=== PATIENT | female | born 1970 | race Caucasian/White ===

== ENCOUNTER → 2017-08-07 09:30 | Outpatient (CLI) | payer BC, SELFPAY ==
--- NOTE | 2017-08-07 09:33 | MM_ITS ---
MM Dig screening mamm BI w/CAD CAD Screening ORDERING PHYSICIAN : Reinaldo Avelar MD PATIENT AGE: 46 years GENDER: Female COMPARISON: Previous mammograms: Bilateral digital mammogram & Ultrasound left breastMay 2016. INDICATION: Routine screening. No hormones no new complaints noncontributory family history. TECHNIQUE: Standard CC and MLO images were obtained. R2 CAD reviewed. FINDINGS: Low-density breast bilaterally. No dominant mass nor suspicious calcifications. Areas of faint minor nodularity the left breast similar to previous studies and can be followed... CAD computer review highlights no areas of concern. Right breast. Benign intramammary node at the far lateral right breast is stable Left breast. The minimal residual glandular elements upper-outer quadrant left breast appears stable. Subtle areas of asymmetric density appear adequately stable IMPRESSION No significant new findings. Bilateral follow-up one year recommended BI-RADS Category: 2 Benign Finding(s) RECOMMENDED FOLLOW-UP: 1YR - 1 YEAR FOLLOW-UP (A letter has been sent to the patient regarding results of the study.)
== END ==
PROVIDERS: PCP Family Medicine; Visit Provider Family Medicine
DX: Z12.31 Encounter for screening mammogram for malignant neoplasm of breast (principal)
CPT/HCPCS: 77067

== ENCOUNTER → 2018-09-27 09:39 | Outpatient (CLI) | payer BC, SELFPAY ==
--- NOTE | 2018-09-27 09:42 | MM_ITS ---
MM Dig screening mamm BI w/CAD CAD Screening COMPARISON: Digital mammograms with CAD 08/07/2017 and 07/17/2016 INDICATION: There is no personal or family history of breast cancer TECHNIQUE: Standard CC and MLO images were obtained. R2 CAD reviewed. FINDINGS: Scattered fibroglandular densities are seen throughout both breasts. There is a possible small asymmetric density upper outer quadrant left breast best seen on MLO projection with questionably spiculated borders. However it appears less worrisome on the CC projection and this could be simply a summation shadow or possibly a small posttraumatic scar. However suggest patient return for spot compression MLO view and exaggerated cc view. There are stable tiny benign-appearing nodular densities near the axillary tails of each breast. There are no suspicious microcalcifications. IMPRESSION: Fibrofatty parenchyma with possible slightly suspicious asymmetric density left breast BI-RADS Category: 0 Need Additional Imaging Evaluation RECOMMENDED FOLLOW-UP: IMM - IMMEDIATE FOLLOW-UP RECOMMENDED (A letter has been sent to the patient regarding results of the study.)
== END ==
PROVIDERS: PCP Family Medicine; Visit Provider Family Medicine
DX: Z12.31 Encounter for screening mammogram for malignant neoplasm of breast (principal)
CPT/HCPCS: 77067

== ENCOUNTER → 2018-10-06 14:01 | Outpatient (CLI) | payer BC, SELFPAY ==
--- NOTE | 2018-10-06 | US_ITS ---
MM Dig mamm DX unilat LT CAD, US breast LT complete INDICATION: Follow-up abnormal mammogram, follow-up asymmetric density ORDERING PHYSICIAN: Reinaldo Avelar MD PATIENT AGE: 47 years COMPARISON: 09/27/2018, 08/07/2017, 04/15/2008 TECHNIQUE: Problem-solving views of the left breast along with left breast ultrasound FINDINGS: There is average fibroglandular tissue. The area of asymmetric density appears to compress out as fibroglandular tissue. Not felt to be significantly changed. There is a 3 mm benign-appearing nodule in the outer aspect of the left breast. Left breast ultrasound: 4 mm cyst is present at 2:00 may correspond to the small nodular density seen on the mammogram IMPRESSION: No convincing evidence of malignancy. Area of asymmetric density appears to compress out. Probably benign-appearing nodule in the outer left breast which may correspond to a cyst on the ultrasound. Recommend 6 month mammographic and sonographic follow-up BI-RADS Category: 3 Probably Benign Finding Short Term Follow-up RECOMMENDED FOLLOW-UP: 6M - 6 MONTH FOLLOW-UP (A letter has been sent to the patient regarding results of the study.)
== END ==
PROVIDERS: PCP Family Medicine; Visit Provider Family Medicine
DX: R92.8 Other abnormal and inconclusive findings on diagnostic imaging of breast (principal)
CPT/HCPCS: 76641; 77065

== ENCOUNTER → 2020-01-02 09:06 | Outpatient (CLI) | payer BC, SELFPAY ==
--- NOTE | 2020-01-02 09:09 | MM_ITS ---
PROCEDURE: MM DIG SCREENING MAMM BI W/CAD Digital Breast Tomosynthesis Included CLINICAL INDICATION: SCREENING There is no personal or family history of breast cancer. COMPARISON: MG DMDBAV DIG MAMM-DX LYSSA W/AVWS W/CAD from 07/17/2016 MG SCBI MM Dig screening mamm BI w/CAD from 08/07/2017 MG DIG MAMM-DX UNI-LT from 10/06/2018 TECHNIQUE: Standard CC and MLO images and 3D Tomosynthesis was obtained. R2 CAD reviewed. FINDINGS: Scattered diffuse fibroglandular densities are seen throughout both breasts. There is a collection of small nodular densities upper outer quadrant right breast possibly small microcysts or possibly couple low-lying nodes. There is no suspicious lesion in either breast and no suspicious microcalcifications. IMPRESSION: Fibrofatty parenchyma with no suspicious lesions seen BI-RAD Category: 1 Negative FOLLOW-UP: 1YR 1 Year Follow-up (A letter has been sent to the patient regarding results of the study.) Dictated by: Dr. Tristian Sawant MD 01/08/2020 08:11 Dr. Tristian Sawant MD in [place] 01/08/2020 08:11
== END ==
PROVIDERS: PCP Family Medicine; Visit Provider Family Medicine
DX: Z12.31 Encounter for screening mammogram for malignant neoplasm of breast (principal)
CPT/HCPCS: 77063; 77067

== ENCOUNTER → 2020-10-27 09:05 | Outpatient (CLI) | payer BC, SELFPAY | PROVIDERS: Visit Provider Surgery | DX: Z20.822 Contact with and (suspected) exposure to COVID-19 (principal) | CPT/HCPCS: U0003 ==

== ENCOUNTER 2020-10-30 09:45 | Day surgery (SDC) | payer BC, SELFPAY ==
[2020-10-29 08:58] VITALS: BMI 27.9
[2020-10-30] VITALS (11 sets, daily range): BP systolic 117–132; BP diastolic 63–84; PULSE 77–108; RESP 16; TEMP 36.6–43; O2SAT 95–99
[2020-10-30 10:18] LABS: Urine Pregnancy, HCG Qual. Negative (Negative)
--- NOTE | 2020-10-30 10:29 | P.PN_ITS ---
[facility] Anesthesia Checklist - Patient Identification Patient Identification: Arm Band - Structural Data Admitted From: Home Planned Operative Procedure/s: Excision of Anal Lesion Consent for Planned Operative Procedure(s) Verified: Yes Verified Documents: Surgical Consent, History and Physical - NPO Status Verified Time NPO: 00:00 - Additional verifications Anesthesia Reactions: No Hx Blood Transfusions: No Blood Transfusion Reaction: No - Airway Assessment C-Spine Mobility Assessed: Yes (mp2) TMJ Mobility Assessed: Yes Dentition: Good Dentition - Neurological Assessment Level of Consciousness: Awake, Alert - Anesthesia Plan Anesthesia Risk discussed: Yes Anesthesia Plan: Verified ASA Class: I Anesthesia Type: General [facility] History I have reviewed the patient's past medical history: Yes Medical History: Denies:: Cancer, Diabetes Mellitus Type 1, Diabetes Mellitus Type 2, Internal Pacemaker, MRSA, Seizures *Have you ever received a pneumonia vaccine?: No *Have you received a flu vaccine this season?: Yes Other Medical History: Denies: Blood Transfusion Reaction Anesthesia experience/problems:: nac Laterality Cases: Bilateral: Tonsillectomy Other Surgeries: Yes: Dilation and Curettage, Other. No: Pacemaker Amputation: No Fractures: No - *Social History Last grade of school completed: High school graduate Smoking Status: Never smoker Alcohol Intake: never Substance Use Type: denies use *Occupational Status:: employed Housing: house Household Members: spouse *Travel in the last 8 weeks: None Family Hx:: No significant family history
--- NOTE | 2020-10-30 11:56 | HMH.OPNOTE ---
Date of procedure: 10/30/20 Pre-op Diagnosis:: Anal polyp Post-op Diagnosis:: Same Procedure performed:: Excision of anal polyp Surgeon:: Terry Jim MD CIRCUIT DESIGNER:: Chris Ibanez Anesthesia: LMA Estimated blood loss (mL): 5 Operative findings:: Consistent with pedunculated anal polyp versus anal papilla Operative note:: Patient was taken to the operating room. She was positioned supine position. General anesthesia was induced. She was positioned in modified lithotomy position. Perineum was prepped and draped in the standard surgical fashion. In the left posterior lateral location there was a pedunculated anal skin lesion. This may be previous inflamed hemorrhoid versus anal polyp. This was grasped and excised with Metzenbaum scissors. Was sent off as specimen. The anoderm was closed with combination of 5-0 plain gut and 4-0 chromic. Local anesthetic was infiltrated. Patient tolerated procedure well no immediate complications. Condition: stable Disposition: PACU Specimens:: Anal polyp Complications:: None immediately apparent
--- NOTE | 2020-10-30 12:11 | P.PN_ITS ---
[facility] Anesthesia Record Part I Intake, IV Amount: 900 Estimated blood loss (mL): 5 Urine output (mL): 0 Blood Pressure: 118/63 SaO2: 97 Pulse Rate: 105 Respiratory Rate: 16 Temperature: 98.5 F Patient is:: Drowsy, Stable Stable to PACU at:: 12:00
--- NOTE | 2020-10-30 13:38 | P.PN_ITS ---
[facility] Anesthesia Record Part II Discharge Time: 12:30 Destination: Surgical Day Care (OP Surgery) PACU nurse assessment reviewed?: Yes Patient Condition:: Good Anesthesia Complications:: None Swallowing reflex intact?: Yes Cyanosis?: No Blood Pressure: 127/83 Pulse Rate: 79 Temperature: 98.5 F Mental Status: Alert & Oriented Pain level:: 0 Nausea and/or vomitting:: None Intake, IV Amount: 0
== END 2020-10-30 13:00 | disposition home or self-care (01) ==
LOC: OR 09:47
PROVIDERS: PCP Family Medicine; Visit Provider Surgery
PROC: (CPT 46922; principal; 2020-10-30 11:30)
DX: K62.0 Anal polyp (principal); Z79.899 Other long term (current) drug therapy; F32.9 Major depressive disorder, single episode, unspecified
CPT/HCPCS: 46922; 81025; 96374; J2405

== ENCOUNTER → 2021-08-27 16:03 | Outpatient (CLI) | payer BC, SELFPAY ==
--- NOTE | 2021-08-27 16:07 | MM_ITS ---
PROCEDURE INFORMATION: Exam: MG Bilateral Screening 3D Mammography Exam date and time: 08/27/2021 3:59 PM Age: 50 years old Clinical indication: Screening examination TECHNIQUE: Imaging protocol: Bilateral Screening tomosynthesis and 2D mammography including computer-aided detection (CAD) when performed. COMPARISON: 1. MG MM DIG SCREENING MAMM BI W/CAD 01/02/2020 9:15 AM 2. MG MM DIG MAMM DX UNILAT LT CAD 10/06/2018 2:56 PM 3. MG SCBI MM Dig screening mamm BI w/CAD 08/07/2017 9:52 AM 4. MG DMDBAV DIG MAMM-DX LYSSA W/AVWS W/CAD 07/17/2016 9:53 AM FINDINGS: MAMMOGRAPHY: Breast composition: There are scattered areas of fibroglandular density. Mass: No suspicious mass. Architectural distortion: None. Calcifications: No suspicious calcifications. Asymmetric density: None. Skin thickening: None. Axillary adenopathy: None. IMPRESSION: No mammographic evidence of malignancy. Annual screening is recommended unless otherwise clinically indicated. ASSESSMENT: BI-RADS Category 1: Negative
== END ==
PROVIDERS: PCP Family Medicine; Visit Provider Family Medicine
DX: Z12.31 Encounter for screening mammogram for malignant neoplasm of breast (principal)
CPT/HCPCS: 77063; 77067

== ENCOUNTER 2022-02-14 08:22 | Day surgery (SDC) | payer BC, SELFPAY ==
[2022-02-11 16:57] VITALS: BMI 18.8
[2022-02-14] VITALS (7 sets, daily range): BP systolic 95–146; BP diastolic 59–87; PULSE 79–111; RESP 16–18; TEMP 36.3–36.7; O2SAT 96–100
--- NOTE | 2022-02-14 08:43 | P.PN_ITS ---
[facility] Disclaimer: The information contained in this section may have been updated after the patient was seen, as this information can be updated by other users. Medical History Depression Surgical History History of dilatation and curettage History of surgical removal of skin lesion History of tonsillectomy Family History Other Family history of cancer Social History Smoking Status: Never smoker alcohol intake: never substance use type: denies use current occupational status: employed Travel in the last 8 weeks: None household members: spouse housing: house current occupation: [employer] current occupational exposures/hazards: No caffeine: Yes [facility] Anesthesia Checklist Patient Identification Patient Identification: Arm Band and Verbal (Name & ) Structural Data Admitted From: Home Planned Operative Procedure/s: Colonoscopy Consent for Planned Operative Procedure(s) Verified: Yes NPO Status Verified Time NPO: 00:00 Additional verifications Anesthesia Reactions: No Hx Blood Transfusions: No Blood Transfusion Reaction: No Airway Assessment C-Spine Mobility Assessed: Yes TMJ Mobility Assessed: Yes Dentition: Good Dentition Neurological Assessment Level of Consciousness: Awake Hx Seizures: No Numbness or tingling in extremities: No Anesthesia Plan Anesthesia Risk discussed: Yes Anesthesia Plan: Verified ASA Class: I Anesthesia Type: MAC
[2022-02-14 08:48] LABS: Urine Pregnancy, HCG Qual. Negative (Negative)
--- NOTE | 2022-02-14 10:02 | HMH.SCOPE ---
Procedure: Date: 02/14/22 Patient Date of :: 1970 Procedure Performed:: Total colonoscopy to terminal ileum with biopsy Indications:: Patient is a 51-year-old female referred by Dr. Avelar for initial screening colonoscopy. 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 She does state that her uncle had colon cancer. Performing Provider:: Terry Jim MD Referring Provider:: Reinaldo Avelar Sedation:: MAC sedation Procedure:: Patient history was obtained and appropriate physical examination was performed. Patient's medications and allergies were reviewed. Informed consent was obtained after explaining the benefits, alternatives, and risks of the procedure including, but not limited to, bleeding, perforation, missed lesions, and adverse reaction to anesthesia medications. Patient was transported to endoscopy procedure room. Patient was connected to monitoring devices. Throughout the procedure the patient's blood pressure, pulse, and oxygen saturations were monitored continuously. Patient identification and planned procedure were verified by the staff. Patient was positioned in lateral decubitus position. Digital anorectal exam was performed. Variable stiffness Olympus colonoscope was inserted and advanced under direct visualization to the cecum. Adequacy of the colonic preparation was noted. The colonoscope was advanced a short distance into the terminal ileum. The colonoscope was then slowly withdrawn while carefully examining the color, texture, anatomy, and integrity of the mucosoa circumferentially. Within the rectum retroflexion was performed. Colonoscope was then withdrawn. Findings:: Variable stiffness Olympus colonoscope was inserted via the anus. It was advanced to the cecum with some difficulty due to redundancy and atony of the colon. Ultimately ileocecal valve and appendiceal orifice were identified. In the terminal ileum there was some denuded mucosa, likely inconsequential. Biopsy was performed. There were no other noted masses, polyps, or mucosal lesions. There were possibly some beginnings of diverticuli in the sigmoid colon but this was subtle. Retroflexion revealed no pathologic internal hemorrhoids. Findings: Relatively unremarkable colonoscopy, some denuded mucosa in the terminal ileum biopsied, likely normal Recommendations:: Repeat colonoscopy 5 to 10 years. Favor 5 years given that initial screening colonoscopy as well as vague family history. Complications:: None immediate Estimated blood obtained (mL): 1
== END 2022-02-14 10:45 | disposition home or self-care (01) ==
PROVIDERS: PCP Family Medicine; Visit Provider Surgery
PROC: 0DJD8ZZ Inspection of Lower Intestinal Tract, Via Natural or Artificial Opening Endoscopic (ICD-10-PCS; CPT 45380; principal; 2022-02-14 09:30)
DX: Z12.11 Encounter for screening for malignant neoplasm of colon (principal); Z80.0 Family history of malignant neoplasm of digestive organs; Z79.899 Other long term (current) drug therapy
CPT/HCPCS: 45380; 81025; 88305; J2704

== ENCOUNTER 2023-08-12 08:04 | Outpatient (CLI) | payer BC, SELFPAY ==
--- NOTE | 2023-08-12 08:11 | MM_ITS ---
PROCEDURE INFORMATION: Exam: MG Bilateral Screening 3D Mammography Exam date and time: 08/12/2023 7:59 AM Age: 52 years old Clinical indication: Screening mammogram TECHNIQUE: Imaging protocol: Bilateral Screening tomosynthesis and 2D mammography including computer-aided detection (CAD) when performed. COMPARISON: 1. MG MM DIG SCREENING MAMM BI W/CAD 08/27/2021 3:59 PM 2. MG MM DIG SCREENING MAMM BI W/CAD 01/02/2020 9:15 AM 3. MG MM DIG MAMM DX UNILAT LT CAD 10/06/2018 2:56 PM 4. MG SCBI MM Dig screening mamm BI w/CAD 08/07/2017 9:52 AM FINDINGS: MAMMOGRAPHY: Breast composition: There are scattered areas of fibroglandular density. Mass: None. Architectural distortion: No new or suspicious architectural distortion. Calcifications: No new or suspicious calcifications are present Asymmetric density: No new or suspicious asymmetric density is present Skin thickening: None. Axillary adenopathy: None. IMPRESSION: No mammographic evidence of malignancy. Recommend annual screening mammography unless otherwise clinically indicated. ASSESSMENT: BI-RADS category 1: Negative.
== END 2023-08-12 23:59 | disposition home or self-care (01) ==
LOC: RAD 08:05
PROVIDERS: PCP Family Medicine; Visit Provider Family Medicine
DX: Z12.31 Encounter for screening mammogram for malignant neoplasm of breast (principal)
CPT/HCPCS: 77063; 77067

== ENCOUNTER 2024-12-09 07:43 | Outpatient (CLI) | payer BC, SELFPAY ==
--- NOTE | 2024-12-09 07:45 | MM_ITS ---
PROCEDURE INFORMATION: Exam: MG Bilateral Screening 3D Mammography Exam date and time: 12/09/2024 8:10 AM Age: 54 years old Clinical indication: Screening examination TECHNIQUE: Imaging protocol: Bilateral Screening tomosynthesis and 2D mammography including computer-aided detection (CAD) when performed. COMPARISON: MG MM DIG SCREENING MAMM BI W/CAD 08/12/2023 7:59 AM FINDINGS: MAMMOGRAPHY: Breast composition: There are scattered areas of fibroglandular density. Mass: 0.5 cm ovoid mass in the anterior left lower quadrant Architectural distortion: None. Calcifications: No suspicious calcifications. Asymmetric density: None. Skin thickening: None. Axillary adenopathy: None. IMPRESSION: Patient to be recalled for left breast ultrasound for further evaluation of a left breast mass. ASSESSMENT: BI-RADS Category 0: Incomplete- Need Additional Imaging Evaluation
== END 2024-12-09 23:59 | disposition home or self-care (01) ==
LOC: RAD 07:44
PROVIDERS: PCP Family Medicine; Visit Provider Family Medicine
DX: Z12.31 Encounter for screening mammogram for malignant neoplasm of breast (principal); R92.323 Mammographic fibroglandular density, bilateral breasts; N63.20 Unspecified lump in the left breast, unspecified quadrant
CPT/HCPCS: 77063; 77067

== ENCOUNTER 2024-12-22 12:38 | Outpatient (CLI) | payer BC, SELFPAY ==
--- NOTE | 2024-12-22 12:40 | US_ITS ---
PROCEDURE INFORMATION: Exam: US Left Breast, Complete Exam date and time: 12/22/2024 12:54 PM Age: 54 years old Clinical indication: Patient recalled for further evaluation of a left breast mass TECHNIQUE: Imaging protocol: Complete ultrasound of all four quadrants of the left breast and the retroareolar regions, including ultrasound of the axilla when performed. COMPARISON: Mammogram dated 12/09/2024 FINDINGS: ULTRASOUND: Breast ultrasound findings: Sonographic images of the left 7 o'clock axis 2 cm from the nipple demonstrates a 0.5 cm cyst most closely corresponding to the mass on mammography. Additional subcentimeter retroareolar cysts are noted. No solid masses. No axillary adenopathy. IMPRESSION: Mass on screening mammography corresponds to underlying cystic change sonographically. There is no mammographic evidence of malignancy.Annual bilateral mammographic screening is recommended unless otherwise clinically indicated. ASSESSMENT: BI-RADS Category 2: Benign.
== END 2024-12-22 23:59 | disposition home or self-care (01) ==
LOC: RAD 12:38
PROVIDERS: PCP Family Medicine; Visit Provider Family Medicine
DX: N60.02 Solitary cyst of left breast (principal); R92.8 Other abnormal and inconclusive findings on diagnostic imaging of breast
CPT/HCPCS: 76641